=== PATIENT | female | born 1930 | race Caucasian/White ===

== ENCOUNTER 2017-10-10 11:38 | Observation (INO) | payer OTHER ==
[~2017-10-10] VITALS: Ht 157.5 cm; Wt 83.0 kg
[~2017-10-10 11:38] MED LIST: ADULT LOW STREN81 M2 PO; ALTOPREV40 MG PO; ANTIVERT25 MG PO; APRESOLINE50 MG PO; CLONIDINE HCL0.3 MG PO; CRESTOR20 MG PO; GLIPI; HUMALOG MI100 UNIT/6 SC; IMDUR30 MG PO; ISOSORBIDE MONO10 M1 PO; LEVEMIR FL100 UNIT/1 SC; LEVEMIR FL100 UNITS/ SC; LEVO-T75 MCG PO; LOPRESSOR12.5 MG PO; LOPRESSOR25 MG PO; LOW DOSE ASPIRI81 M1 PO; METOPROLOL SUCC25 MG PO; NORVASC10 MG PO; NOVOLOG PE100 UNITS/ SC; PRINIVIL20 MG PO; ULTRAM50 MG PO; ZOFRAN4 MG PO; Zestril,Prinivil PO; [UNRECOGNIZED DRUG - OTHER]; insulin
[2017-10-10 12:49] LABS: BASOPHIL (%) 0.3 % (0-1); EOSINOPHIL (%) 1.5 % (0-5); EOSINOPHIL COUNT 0.2 K/uL (0-0.3); HEMATOCRIT 38.6 % (36.0-46.0); HEMOGLOBIN 12.9 G/DL (11.9-15.5); IMMATURE GRANULOCYTE (%) 0.5 % (0.0-0.7); LYMPHOCYTE (%) 14.9 % (15-42); LYMPHOCYTE COUNT 1.6 K/uL (1.0-2.8); MCH 29.9 PG (29.0-34.0); MCHC 33.4 G/DL (30.0-36.0); MCV 89.4 FL (83-99); MONOCYTE COUNT 0.8 K/uL (0-0.8); NEUTROPHIL (%) 74.8 % (45-76); NEUTROPHIL COUNT 7.8 K/uL (1.8-6.4); PLATELET COUNT 313 K/uL (156-360); RBC DIS.WIDTH-CV 13.1 % (11.8-14.6); RBC DIS.WIDTH-SD 43.1 % (39-53); RED BLOOD COUNT 4.32 M/uL (3.80-5.20); WHITE BLOOD COUNT 10.4 K/uL (4.1-10.2)
[2017-10-10 12:58] LABS: CHLORIDE 106 mEq/L (99-109); POTASSIUM 4.6 mEq/L (3.7-5.4); SODIUM 138 mEq/L (136-147)
[2017-10-10 12:59] LABS: GLUCOSE 104 mg/dL (70-99)
[2017-10-10 13:03] LABS: CREATININE 1.9 mg/dL (0.6-1.3); GFR ESTIMATE (CALCULATED) 27 mL/min/
[2017-10-10 13:04] LABS: UREA NITROGEN (BUN) 37 mg/dL (9-23)
[2017-10-10 13:09] LABS: TROP-I INTERPRETATION NEGATIVE; TROPONIN-I 0.01 ng/mL (0.0-0.30)
[2017-10-10] MEDS ORDERED: ANTIVERT25 MG PO (15:10)
[2017-10-10 16:45] LABS: TROP-I INTERPRETATION NEGATIVE; TROPONIN-I < 0.01 ng/mL (0.0-0.30)
[2017-10-10] MEDS ORDERED: ISOSORBIDE DINI10 MG PO (17:39)
[2017-10-10] MEDS ORDERED: LISINOPRIL20 MG PO (17:40)
[2017-10-10] MEDS ORDERED: AMLODIPINE BESY10 MG PO (17:40)
[2017-10-10 17:41] LABS: HDL CHOLESTEROL 48 MG/DL (Desirable>=50); LDL CHOLESTEROL 74 mg/dL (Desirable<100); NON-HDL CHOLESTEROL 91 mg/dL (Desirable<160); TOTAL CHOLESTEROL 139 mg/dL (Desirable<200); TRIGLYCERIDES 87 MG/DL (Normal: <150)
[2017-10-10] MEDS ORDERED: VITAMIN D32000 UNI1 PO (17:42)
[2017-10-10 17:54] VITALS: BP 185/84
[2017-10-10 20:30] LABS: APPEARANCE SL.HAZY ((CLEAR)); BILIRUBIN NEGATIVE; BLOOD SMALL; COLOR STRAW ((YELLOW)); GLUCOSE (STRIP) 50; KETONES NEGATIVE; LEUKOCYTES NEGATIVE; NITRITE NEGATIVE; PROTEIN (STRIP) 30; SPECIFIC GRAVITY 1.005 (1.000-1.030); UROBILINOGEN 0.2 MG/DL (0.2-1.0)
[2017-10-10 21:30] LABS: BACTERIA RARE /HPF; EPITHELIAL CELLS 1+ /HPF; MUCUS NONE SEEN /LPF; RED BLOOD CELLS 0-5 /HPF (0-5); UCUL ADDED? NO; WHITE BLOOD CELLS 0-5 /HPF (0-5)
[2017-10-11 00:10] VITALS: BP 138/61
[2017-10-11 00:57] LABS: TROP-I INTERPRETATION NEGATIVE; TROPONIN-I 0.08 ng/mL (0.0-0.30)
[2017-10-11 04:13] VITALS: BP 1322/75
[2017-10-11 06:30] LABS: TROP-I INTERPRETATION NEGATIVE; TROPONIN-I 0.12 ng/mL (0.0-0.30)
[2017-10-11 06:33] LABS: ALKALINE PHOSPHATASE 57 IU/L (3-129); ALT (GPT) 10 IU/L (3-49); AST (GOT) 10 IU/L (2-34); CHLORIDE 112 MEQ/L (99-109); CREATININE 1.8 MG/DL (0.6-1.3); DIRECT BILIRUBIN 0.1 mg/dL (0.0-0.3); GFR ESTIMATE (CALCULATED) 28 mL/min/; GLUCOSE 128 mg/dL (70-99); POTASSIUM 5.2 MEQ/L (3.7-5.4); SODIUM 142 MEQ/L (136-147); TOTAL BILIRUBIN 0.3 MG/DL (0.0-1.0); TOTAL PROTEIN 5.4 G/DL (6.4-8.3); UREA NITROGEN (BUN) 34 mg/dL (9-23)
[2017-10-11 06:48] LABS: BASOPHIL (%) 0.4 % (0-1); EOSINOPHIL (%) 1.9 % (0-5); EOSINOPHIL COUNT 0.1 K/uL (0-0.3); HEMATOCRIT 32.5 % (36.0-46.0); IMMATURE GRANULOCYTE (%) 0.4 % (0.0-0.7); LYMPHOCYTE COUNT 1.7 K/uL (1.0-2.8); MCH 29.6 PG (29.0-34.0); MCHC 31.7 G/DL (30.0-36.0); MONOCYTE (%) 10.1 % (3-12); MONOCYTE COUNT 0.7 K/uL (0-0.8); NEUTROPHIL (%) 62.2 % (45-76); NEUTROPHIL COUNT 4.3 K/uL (1.8-6.4); PLATELET COUNT 256 K/uL (156-360); RBC DIS.WIDTH-CV 13.5 % (11.8-14.6); RBC DIS.WIDTH-SD 46.3 % (39-53); RED BLOOD COUNT 3.48 M/uL (3.80-5.20); WHITE BLOOD COUNT 6.9 K/uL (4.1-10.2)
[2017-10-11 06:54] LABS: HEMOGLOBIN 10.3 G/DL (11.9-15.5); MCV 93.4 FL (83-99)
[2017-10-11 07:31] VITALS: BP 145/64
[2017-10-11 11:45] VITALS: BP 151/73
[2017-10-11] MEDS ORDERED: LISINOPRIL5 MG PO (14:15)
[2017-10-11] MEDS ORDERED: HUMALOG MI100 UNIT/6 SC (14:16)
[2017-10-12 09:40] LABS: HEMOGLOBIN A1c (GLYCOHEMOGLOB) 8.9 % (Below 5.7)
== END 2017-10-11 15:31 | disposition home or self-care (01) ==
LOC: EME 11:38 → 5WEST 16:18 → EDOF 16:18 → ENRESERV 16:20 → 5WEST 17:43
PROVIDERS: Emergency Medicine; Hospitalist
DX: R55 Syncope and collapse (principal); R07.9 Chest pain, unspecified; H81.10 Benign paroxysmal vertigo, unspecified ear; R11.2 Nausea with vomiting, unspecified; I48.2 Chronic atrial fibrillation; I48.0 Paroxysmal atrial fibrillation; R00.1 Bradycardia, unspecified; I12.9 Hypertensive chronic kidney disease with stage 1 through stage 4 chronic kidney disease, or unspecified chronic kidney disease; E11.22 Type 2 diabetes mellitus with diabetic chronic kidney disease; N18.3 Chronic kidney disease, stage 3 (moderate); N17.9 Acute kidney failure, unspecified; I25.10 Atherosclerotic heart disease of native coronary artery without angina pectoris; Z90.49 Acquired absence of other specified parts of digestive tract; Z90.710 Acquired absence of both cervix and uterus; Z79.4 Long term (current) use of insulin; Z79.82 Long term (current) use of aspirin
CPT/HCPCS: 70450; 71045; 80048; 80061; 80076; 81003; 82948; 83036; 84484; 85025; 93005; 99281; 99285; G0378; J1644; J1815; J2405; J7030; J7040; S0028

== ENCOUNTER 2017-12-01 11:53 | Observation (INO) | payer OTHER ==
[~2017-12-01] VITALS: Ht 157.5 cm; Wt 74.8 kg
[~2017-12-01 11:53] MED LIST changes: +AMLODIPINE BESY10 MG PO; +ISOSORBIDE DINI10 MG PO; +LISINOPRIL20 MG PO; +LISINOPRIL5 MG PO; +VITAMIN D32000 UNI1 PO
[2017-12-01 12:23] LABS: BASOPHIL (%) 0.1 % (0-1); EOSINOPHIL (%) 0 % (0-5); HEMATOCRIT 35.4 % (36.0-46.0); HEMOGLOBIN 11.9 G/DL (11.9-15.5); IMMATURE GRANULOCYTE (%) 0.7 % (0.0-0.7); LYMPHOCYTE (%) 4.6 % (15-42); LYMPHOCYTE COUNT 0.7 K/uL (1.0-2.8); MCH 29.8 PG (29.0-34.0); MCHC 33.6 G/DL (30.0-36.0); MCV 88.5 FL (83-99); MONOCYTE (%) 1.9 % (3-12); MONOCYTE COUNT 0.3 K/uL (0-0.8); NEUTROPHIL (%) 92.7 % (45-76); NEUTROPHIL COUNT 13.8 K/uL (1.8-6.4); PLATELET COUNT 477 K/uL (156-360); RBC DIS.WIDTH-CV 13.1 % (11.8-14.6); RBC DIS.WIDTH-SD 42.7 % (39-53); WHITE BLOOD COUNT 14.9 K/uL (4.1-10.2)
[2017-12-01 12:25] LABS: CARBON DIOXIDE (BICARBONATE) 20.2 MEQ/L (20-31)
[2017-12-01 12:35] LABS: ALBUMIN 3.7 g/dL (3.2-4.8); CHLORIDE 100 mEq/L (99-109); POTASSIUM 5.1 mEq/L (3.7-5.4); SODIUM 132 mEq/L (136-147)
[2017-12-01 12:36] LABS: MAGNESIUM 2.1 mg/dL (1.3-2.7)
[2017-12-01 12:38] LABS: TOTAL PROTEIN 7.7 g/dL (6.4-8.3)
[2017-12-01 12:39] LABS: GLUCOSE 548 mg/dL (70-99)
[2017-12-01 12:40] LABS: TOTAL BILIRUBIN 0.4 mg/dL (0.0-1.0)
[2017-12-01 12:41] LABS: ALKALINE PHOSPHATASE 86 IU/L (3-129)
[2017-12-01 12:42] LABS: GFR ESTIMATE (CALCULATED) 25 mL/min/
[2017-12-01 12:43] LABS: AST (GOT) 10 IU/L (2-34); UREA NITROGEN (BUN) 43 mg/dL (9-23)
[2017-12-01 12:45] LABS: ALT (GPT) 11 IU/L (3-49); TROP-I INTERPRETATION NEGATIVE; TROPONIN-I 0.11 ng/mL (0.0-0.30)
[2017-12-01 15:38] LABS: APPEARANCE CLEAR ((CLEAR)); BILIRUBIN NEGATIVE; BLOOD MODERATE; COLOR STRAW ((YELLOW)); GLUCOSE (STRIP) >=500; KETONES 5; LEUKOCYTES NEGATIVE; NITRITE NEGATIVE; PROTEIN (STRIP) 100; SPECIFIC GRAVITY 1.021 (1.000-1.030); UROBILINOGEN 0.2 MG/DL (0.2-1.0)
[2017-12-01 15:48] LABS: BACTERIA NONE SEEN /HPF; EPITHELIAL CELLS RARE /HPF; HYALINE CASTS 0-5 /LPF; MUCUS NONE SEEN /LPF; RED BLOOD CELLS 0-5 /HPF (0-5); UCUL ADDED? NO; WHITE BLOOD CELLS 0-5 /HPF (0-5)
[2017-12-01] MEDS ORDERED: HUMALOG MI100 UNIT/6 SC (15:50)
[2017-12-01] MEDS ORDERED: LISINOPRIL5 MG PO (15:51)
[2017-12-01] MEDS ORDERED: PREDNISONE20 MG PO (15:56)
[2017-12-01] MEDS ORDERED: OMEPRAZOLE40 M1 PO (15:57)
[2017-12-01] MEDS ORDERED: AMLODIPINE BESY10 MG PO (15:57)
[2017-12-01 17:07] VITALS: BP 164/92
[2017-12-01 19:07] VITALS: BP 168/76
[2017-12-01 23:51] VITALS: BP 110/58
[2017-12-02] VITALS (8 sets, daily range): BP systolic 106–156; BP diastolic 55–93
[2017-12-02 10:38] LABS: CHLORIDE 109 MEQ/L (99-109); CREATININE 1.6 MG/DL (0.6-1.3); GFR ESTIMATE (CALCULATED) 32 mL/min/; GLUCOSE 209 mg/dL (70-99); POTASSIUM 4.2 MEQ/L (3.7-5.4); SODIUM 138 MEQ/L (136-147); UREA NITROGEN (BUN) 36 mg/dL (9-23)
[2017-12-03 03:55] VITALS: BP 146/84
[2017-12-03 06:58] VITALS: BP 146/84
[2017-12-03 09:07] VITALS: BP 112/55
[2017-12-03 09:14] VITALS: BP 146/84
[2017-12-03 10:59] VITALS: BP 131/65
== END 2017-12-03 12:03 | disposition home or self-care (01) ==
LOC: EME 11:53 → EDOF 15:19 → 5WEST 15:19 → EDOF 15:19 → ENRESERV 15:21 → CANRESERV 15:41 → ENRESERV 15:41 → ENPENDDIS 12-03 → 5WEST 12-03 12:03
PROVIDERS: Emergency Medicine; Internal Medicine; Nurse Practitioner Family
DX: E11.65 Type 2 diabetes mellitus with hyperglycemia (principal); T38.0X5A Adverse effect of glucocorticoids and synthetic analogues, initial encounter; E86.0 Dehydration; R42 Dizziness and giddiness; E11.22 Type 2 diabetes mellitus with diabetic chronic kidney disease; I12.9 Hypertensive chronic kidney disease with stage 1 through stage 4 chronic kidney disease, or unspecified chronic kidney disease; N18.3 Chronic kidney disease, stage 3 (moderate); Z79.4 Long term (current) use of insulin; I48.91 Unspecified atrial fibrillation; Z90.710 Acquired absence of both cervix and uterus; Z90.49 Acquired absence of other specified parts of digestive tract
CPT/HCPCS: 71046; 80048; 80053; 81003; 82010; 82803; 82948; 83605; 83735; 84484; 85025; 93005; 94640; 99281; 99285; G0378; J1815; J2405; J7030

== ENCOUNTER → 2018-01-05 | Outpatient (CLI) | payer OTHER ==
[~2018-01-05] MED LIST changes: +OMEPRAZOLE40 M1 PO; +PREDNISONE20 MG PO
[2018-01-05 08:31] LABS: BASOPHIL (%) 0.5 % (0-1); EOSINOPHIL (%) 2.9 % (0-5); EOSINOPHIL COUNT 0.2 K/uL (0-0.3); HEMATOCRIT 34.9 % (36.0-46.0); HEMOGLOBIN 11.4 G/DL (11.9-15.5); IMMATURE GRANULOCYTE (%) 0.5 % (0.0-0.7); LYMPHOCYTE (%) 22.8 % (15-42); LYMPHOCYTE COUNT 1.9 K/uL (1.0-2.8); MCH 30.1 PG (29.0-34.0); MCHC 32.7 G/DL (30.0-36.0); MCV 92.1 FL (83-99); MONOCYTE (%) 8.2 % (3-12); MONOCYTE COUNT 0.7 K/uL (0-0.8); NEUTROPHIL (%) 65.1 % (45-76); NEUTROPHIL COUNT 5.3 K/uL (1.8-6.4); PLATELET COUNT 350 K/uL (156-360); RBC DIS.WIDTH-SD 47.4 % (39-53); RED BLOOD COUNT 3.79 M/uL (3.80-5.20); WHITE BLOOD COUNT 8.2 K/uL (4.1-10.2)
[2018-01-05 09:14] LABS: PTT 30.9 SEC (25-37)
[2018-01-05 10:35] LABS: ABS NEUTROPHIL COUNT 5.1; EOSINOPHIL ABS CT 0.1; EOSINOPHILS 1.8 % (0-5.0); LYMPHOCYTES 27.3 % (15.0-45.0); MONOCYTES 8.2 % (0-9.0); MYELOCYTES 0.9 %; PLAT.SUFFICIENCY INCREASED; SEG.NEUTROPHILS 61.8 % (46.0-76.0)
[2018-01-08 10:19] LABS: CLINICAL INFORMATION NOT PROVIDED; NUMBER OF MARKERS 22; SPECIMEN TYPE BONE MARROW; SPECIMEN VIABILITY 90
== END | disposition home or self-care (01) ==
LOC: OPR 07:39 → EDSTATUS 08:00
PROVIDERS: Internal Medicine Hematology & Oncology
PROC: 07DR3ZX Extraction of Iliac Bone Marrow, Percutaneous Approach, Diagnostic (ICD-10-PCS; principal; 2018-01-05)
DX: D47.2 Monoclonal gammopathy (principal); I12.9 Hypertensive chronic kidney disease with stage 1 through stage 4 chronic kidney disease, or unspecified chronic kidney disease; E11.22 Type 2 diabetes mellitus with diabetic chronic kidney disease; N18.9 Chronic kidney disease, unspecified; Z79.4 Long term (current) use of insulin
CPT/HCPCS: 77012; 82948; 85007; 85025; 85610; 85730; J3010